=== PATIENT | male | born 1985 | race Caucasian/White ===

== ENCOUNTER 2020-04-13 10:34 | Observation (INO) | payer OTHER, SELFPAY ==
[2020-04-13] VITALS (11 sets, daily range): BP systolic 135–165; BP diastolic 71–94; PULSE 56–71; RESP 13–20; TEMP 36.2–36.6; O2SAT 97–100; BMI 34.9
--- NOTE | ~2020-04-13 | XR_ITS ---
EXAMINATION: XR chest 2V DATE: 04/13/2020 11:21 INDICATION: Left arm and neck tingling. TECHNIQUE: Frontal and lateral views of the chest were obtained. COMPARISON: Chest 2 views 03/28/2010 FINDINGS: The chest demonstrates clear lungs without pneumonia, pleural effusion, or pneumothorax. Th e heart size is normal. IMPRESSION: 1. No acute cardiopulmonary disease. Reviewed, dictated and finalized at location A. UDER OPERATOR MULTIPLE
--- NOTE | 2020-04-13 10:48 | ECG_ITS ---
Measurements Intervals [place] Rate: 61 P: 38 TN: 161 QRS: -13 QRSD: 103 T: 9 QT: 389 QTc: 392 Interpretive Statements SINUS RHYTHM VOLTAGE CRITERIA FOR LVH BORDERLINE R WAVE PROGRESSION, ANTERIOR LEADS BORDERLINE ECG Electronically Signed On 04-13-2020 11:19:02 BARBED WIRE MACHINE OPERATOR by Boy Hackett D.O.
[2020-04-13 11:20] LABS: Basophils Percent Auto 0.2 % (0.2-1.2); Eosinophils Absolute Auto 0.1 K/mm3 (0-0.3); Eosinophils Percent Auto 1.5 % (0-4.4); Hematocrit 44.2 % (42.0-52.0); Hemoglobin 15.7 g/dL (14.0-18.0); Immature Granulocyte Absolute 0.04 K/mm3 (0.00-0.031); Immature Granulocyte Percent A 0.9 % (0-0.5); Lymphocytes Absolute Auto 1.55 K/mm3 (0.9-3.2); Lymphocytes Percent Auto 33.6 % (18.3-44.2); Mean Corpuscular HGB Conc 35.5 g/dl (32-36); Mean Corpuscular Hemoglobin 28.4 pg (26-34); Mean Corpuscular Volume 80.1 fl (80-100); Mean Platelet Volume 9.5 fl (7.4-10.4); Monocytes Absolute Auto 0.4 K/mm3 (0.1-0.6); Monocytes Percent Auto 8.2 % (2.6-8.5); Neutrophils Absolute Auto 2.6 K/mm3 (1.3-6.7); Neutrophils Percent Auto 55.6 % (45.5-73.1); Platelet Count Result 182 k/mm3 (150-375); Red Blood Count 5.52 M/mm3 (4.6-6.20); Red Cell Distribution Width 12.3 % (11.5-14.5); White Blood Count 4.6 K/mm3 (4.5-10.0)
[2020-04-13 11:26] LABS: Anion Gap 7 mmol/L (8-16); Blood Urea Nitrogen 11 mg/dL (9-20); Calcium 8.9 mg/dL (8.4-10.2); Carbon Dioxide 29 mmol/L (22-30); Chloride 104 mmol/L (98-107); Estimated CRCL calculation 138 ml/min; Estimated Glomerular Filt Rate > 60; Glucose 93 mg/dL (75-110); Potassium 3.9 mmol/L (3.4-5.0); Sodium 140 mmol/L (137-145)
[2020-04-13 11:27] LABS: INR 0.9; Prothrombin Time 12.9 Seconds (11.1-14.7)
[2020-04-13 11:28] LABS: Partial Thromboplastin Time 28.4 SECONDS (22.3-36.8)
[2020-04-13 11:39] LABS: Troponin I < 0.012 ng/mL (0.000-0.034)
--- NOTE | 2020-04-13 11:53 | ED.GENADULT ---
HPI - General Adult General Chief complaint: Unspecified Stated complaint: palpitations, left arm numbness, lightheaded Time Seen by Provider: 04/13/20 11:18 Source: patient and family Mode of arrival: ambulatory Limitations: no limitations History of Present Illness HPI narrative: This is a 34 year old male with history of hypertension who presents for evaluation of palpitations and left arm tingling. His states he has had intermittent episodes of palpitations and diaphoresis with exertion for 6 months. Patient states starting on he developed diaphoresis, palpitation and neck pain 20 minutes after raking his yard. He states he felt better Monday to Monday, although he still did not feel right. Today he reports left arm tingling but denies focal weakness, chest pain. His reports his father has a significant cardiac history. Related Data Home Medications Medication Instructions Recorded Confirmed escitalopram oxalate 5 mg PO DAILY 04/13/20 04/13/20 losartan 50 mg PO DAILY 04/13/20 04/13/20 Allergies Allergy/AdvReac Type Severity Reaction Status Date / Time No Known Allergies Allergy Mild Verified 03/27/10 21:12 Review of Systems Review of Systems: All systems reviewed & are unremarkable except as noted in HPI and below Constitutional: Constitutional: Denies fatigue, Denies fever(s) and Denies headache(s) ENT: Denies headache(s) Cardiovascular: Cardiovascular: Reports chest pain with activity, Reports diaphoresis and Reports dyspnea Respiratory: Respiratory: Denies cough, Denies hemoptysis and Reports dyspnea PMFSH Past Medical History Medical History (Updated 04/13/20 @ 12:11 by Becca Carver MD) Hypertension Family History Family History Father Heart disease Social History Social History (Updated 04/13/20 @ 11:55 by Becca Carver MD) Smoking status: Never smoker Tobacco type: smokeless tobacco Smokeless tobacco user: chewing tobacco Second hand tobacco smoke exposure: Yes Alcohol intake: current Substance use: never Substance use type: does not use Living arrangements: with family Gender identity (if verbalized by the patient): Male Exam Narrative: Exam Narrative: GENERAL: Well-appearing, well-nourished, and in no acute distress. HEAD: Normocephalic, atraumatic EYES: PERRLA and EOMI, conjunctiva clear without discharge EARS: TM's clear bilaterally without erythema or dullness NOSE: Nares clear, no rhinorrhea or epistaxis THROAT:Mucous membranes moist, Oropharynx normal without erythema, exudate, peritonsillar swelling or fluctuance NECK: Supple, without lymphadenopathy or mass RESPIRATORY: No respiratory distress, Airway patent, Respirations non-labored, Clear to auscultation without rales, rhonchi or wheeze HEART: Regular rate and rhythm. No murmur heard. Normal peripheral pulses. ABDOMEN: Soft, nontender, nondistended, normal active bowel sounds. No masses. No rebound or guarding, No organomegaly. EXTREMITIES: No edema, normal strength with full range of motion. SKIN: Warm, dry, normal color without rash NEURO: Alert and oriented x3. CN 2-12 grossly intact. No focal deficits. PSYCH: Normal mood and affect. Course Reevaluation(s) Reevaluation #1: I Discussed with patient and his that he will be obs to materials planning analyst. He has no chest pain at this time. Date: 04/13/20 Time: 12:09 Consultations Consultation #1: I Discussed case with DR. Burton who agrees to admit to chest pain center . Date: 04/13/20 Time: 12:09 Vital Signs Vital signs: Vital Signs Temperature 97.1 F L 04/13/20 10:58 Pulse Rate 69 04/13/20 10:58 Respiratory Rate 18 04/13/20 10:58 Blood Pressure 165/94 H 04/13/20 10:58 Pulse Oximetry 100 04/13/20 10:58 Temperature 97.6 F 04/13/20 16:00 Pulse Rate 71 04/13/20 16:00 Respiratory Rate 15 04/13/20 16:00 Blood Pressure
[2020-04-13] MEDS: ASPIRIN 81 MG CHEWABLE TABLET 324 MG PO (12:24)
--- NOTE | 2020-04-13 14:00 | ECG_ITS ---
Measurements Intervals [place] Rate: 64 P: 7 FL: 148 QRS: 1 QRSD: 91 T: 0 QT: 382 QTc: 395 Interpretive Statements SINUS RHYTHM BORDERLINE R WAVE PROGRESSION, ANTERIOR LEADS BASELINE ARTIFACT- III, AVL, AVF BORDERLINE ECG Electronically Signed On 04-13-2020 14:13:16 CAUSTIC ROOM OPERATOR by Boy Hackett D.O.
--- NOTE | 2020-04-13 14:15 | ADMGEN ---
This patient, Robin Vega, was admitted to [facility] Patient/family oriented to hospital policies and general routines including ID bracelet, bed and alarms, visiting hours, pain management, procedures, bathroom and other care routines, personal items, smoking policy, room service/diet, and visiting hours. Information on how to activate the Rapid Response Team has been discussed. Patient/Family are encouraged to report perceived risks to care and to ask questions if they do not understand what they are told or what they should do.
[2020-04-13 14:55] LABS: Troponin I < 0.012 ng/mL (0.000-0.034)
--- NOTE | 2020-04-13 15:14 | PM.IMHP ---
H&P: HPI History of Present Illness Date/Time: 04/13/20 15:14 Chief Complaint: left neck pain Narrative: Patient is a 34-year-old white man with history of hypertension, active chewing tobacco use, obsessive-compulsive disorder, who is seen in cardiac consultation for a chief complaint of left neck discomfort. Patient reports 3 days prior to admission he was moving rocks when he became diaphoretic, with associated mental fogginess, tachypalpitations, and mild dyspnea. He denied associated chest pain or dizziness. Patient reports he awoke on the day of admission when he developed left neck tightness with associated left arm numbness, without palpitations. He reported some transient mental fogginess on the day of admission. He denied chest pain. He reports some exertional dyspnea the last 5 months. He denies recent injury or trauma. He does report prior surgery near his left wrist. He denies syncope, edema, orthopnea, or paroxysmal nocturnal dyspnea. Patient denies any history of myocardial infarction, congestive heart failure, cardiac arrhythmia, valvular heart disease, prior echo, or prior cardiac stress testing. He has not seen a screen tender previously. Patient reports his father had coronary artery disease requiring coronary artery bypass grafting in his 50s. This admission, EKG demonstrated normal sinus rhythm, poor R-wave progression, minimal voltage criteria for left ventricular hypertrophy. Telemetry has demonstrated sinus rhythm 62 beats per minute. He had a chest x-ray with no acute cardiopulmonary disease. Patient was seen and examined, chart reviewed, case discussed with nurse. Review of Systems Review of Systems: All systems reviewed & are unremarkable except as noted in HPI and below PMFSH Past Medical History Medical History Hypertension Family History Family History Father Heart disease Social History Social History Smoking status: Never smoker Tobacco type: smokeless tobacco Smokeless tobacco user: chewing tobacco Second hand tobacco smoke exposure: Yes Alcohol intake: current Substance use: never Substance use type: does not use Living arrangements: with family Gender identity (if verbalized by the patient): Male Meds Home Medications and Allergies Home Medications Medication Instructions Recorded Confirmed Type escitalopram oxalate 5 mg PO DAILY 04/13/20 04/13/20 History losartan 50 mg PO DAILY 04/13/20 04/13/20 History Allergies Allergy/AdvReac Type Severity Reaction Status Date / Time No Known Allergies Allergy Mild Verified 03/27/10 21:12 Vital Signs Vital Signs - 24 hr 04/13/20 10:58 04/13/20 11:46 04/13/20 12:01 Temperature 36.2 C L Pulse Rate 69 67 61 Respiratory Rate 18 13 15 Blood Pressure 165/94 H 135/86 138/83 Pulse Oximetry 100 100 04/13/20 12:16 04/13/20 12:35 04/13/20 13:20 Temperature 36.6 C Pulse Rate 64 68 67 Respiratory Rate 16 16 Blood Pressure 143/83 H 138/83 138/81 Pulse Oximetry 100 99 04/13/20 14:15 Temperature 36.5 C Pulse Rate 65 Respiratory Rate 14 Blood Pressure 145/81 H Pulse Oximetry 100 Exam Narrative: Exam Narrative: GENERAL: Well-appearing, well-nourished, and in no acute distress. HEAD: Normocephalic, atraumatic EYES: PERRLA and EOMI, conjunctiva clear without discharge EARS: TM's clear bilaterally without erythema or dullness NOSE: Nares clear, no rhinorrhea or epistaxis THROAT:Mucous membranes moist, Oropharynx normal without erythema, exudate, peritonsillar swelling or fluctuance NECK: Supple, without lymphadenopathy or mass RESPIRATORY: No respiratory distress, Airway patent, Respirations non-labored, Clear to auscultation without rales, rhonchi or wheeze HEART: Regular rate and rhythm. No murmur heard. Normal peripheral pulses. No c
--- NOTE | 2020-04-13 17:00 | ECG_ITS ---
Measurements Intervals [place] Rate: 65 P: 53 [place]: 181 QRS: -12 QRSD: 102 T: 35 QT: 372 QTc: 389 Interpretive Statements SINUS RHYTHM DELAYED PRECORDIAL R/S TRANSITION BASELINE ARTIFACT- I, II, III, AVR, AVL, V1 BORDERLINE ECG Electronically Signed On 04-13-2020 20:20:30 CERTIFIED FORKLIFT OPERATOR by Boy Hackett D.O.
[2020-04-13 17:42] LABS: Troponin I < 0.012 ng/mL (0.000-0.034)
[2020-04-13] MEDS: ESCITALOPRAM OXALATE 5 MG TABLET PO (19:44)
[2020-04-13] MEDS: LOSARTAN POTASSIUM 100 MG TABLET PO (19:44)
[2020-04-14] VITALS: BP 125/71; PULSE 56; PULSE 69; RESP 18; TEMP 36.6; O2SAT 97
[2020-04-14 01:59] VITALS: PULSE 60
[2020-04-14 04:00] VITALS: BP 153/90; PULSE 64; RESP 18; TEMP 36.4; O2SAT 98
[2020-04-14 04:54] LABS: Basophils Percent Auto 0.5 % (0.2-1.2); Eosinophils Absolute Auto 0.1 K/mm3 (0-0.3); Hematocrit 44.1 % (42.0-52.0); Immature Granulocyte Absolute 0.02 K/mm3 (0.00-0.031); Immature Granulocyte Percent A 0.4 % (0-0.5); Lymphocytes Absolute Auto 1.81 K/mm3 (0.9-3.2); Lymphocytes Percent Auto 32.8 % (18.3-44.2); Mean Corpuscular HGB Conc 36.3 g/dl (32-36); Mean Corpuscular Hemoglobin 29.2 pg (26-34); Mean Corpuscular Volume 80.5 fl (80-100); Mean Platelet Volume 9.5 fl (7.4-10.4); Monocytes Absolute Auto 0.5 K/mm3 (0.1-0.6); Monocytes Percent Auto 8.5 % (2.6-8.5); Neutrophils Absolute Auto 3.1 K/mm3 (1.3-6.7); Neutrophils Percent Auto 55.8 % (45.5-73.1); Platelet Count Result 187 k/mm3 (150-375); Red Blood Count 5.48 M/mm3 (4.6-6.20); Red Cell Distribution Width 12.3 % (11.5-14.5); White Blood Count 5.5 K/mm3 (4.5-10.0)
[2020-04-14 05:10] LABS: Anion Gap 6 mmol/L (8-16); Blood Urea Nitrogen 10 mg/dL (9-20); Calcium 8.7 mg/dL (8.4-10.2); Carbon Dioxide 30 mmol/L (22-30); Chloride 104 mmol/L (98-107); Estimated CRCL calculation 125 ml/min; Estimated Glomerular Filt Rate > 60; Glucose 94 mg/dL (75-110); Magnesium 1.8 mg/dL (1.6-2.3); Sodium 140 mmol/L (137-145)
[2020-04-14 06:00] VITALS: PULSE 63
[2020-04-14 07:30] VITALS: PULSE 65
--- NOTE | 2020-04-14 07:45 | PC.NURSE ---
DOWN VIA WC FOR STRESS ECHOCARDIOGRAM. DENIES CP OR SOB.
--- NOTE | 2020-04-14 08:00 | EST_ITS ---
Patient Info Name: Robin Vega Age: 34 years : 1985 Gender: Male Ht: 73 in Wt: 264 lbs BSA: 2.52 m2 Heart Rhythm: Sinus Rhythm Exam Date: 04/14/2020 7:47 AM Exam Location: [facility] Patient Status: Inpatient Admit Date: 04/13/2020 Staff Ordering Physician: Ugo Gu MD Gynecology Teacher: Risa Sage RDCS Attending Provider: Tigre Burton MD Exercise Technologist: Bridget Clemente RDCS Exercise Physician: Briana Linton MD Exam Type: CA stress echo Study Info Indications R07.9 - Chest pain, unspecified Treadmill exercise stress echocardiogram is performed. Summary 1. Patient exercise on Kevon protocol for 9 minutes and 45 seconds achieving 12 METS Resting heart rate was 62, increased to 168 at peak exercise which is 90% of maximum age predicted heart rate BP was 126/71 at rest, increased to 207/71 at peak exercise EKG showed normal sinus rhythm at rest. No ischemic changes noted at Peak exercise or at recovery 2D echo showed normal left ventricular systolic function at rest. At peak exercise, LV function became hyperdynamic with no regional wall motion changes. In summary: Stress test is negative for ischemia by EKG and echocardiography criteria Fair exercise tolerance for age No exercise induced arrhythmia Exaggerated hypertensive response to exercise noted. Protocol: Kevon Stress ECG Details Stage: REST Duration (min): 4 min : 4 sec Speed (mph): 0.0 Grade (%): 0 HR (bpm): 63 SBP (mmHg): 126 DBP (mmHg): 71 METS: --- Stage: REST Duration (min): 14 min : 33 sec Speed (mph): 0.0 Grade (%): 0 HR (bpm): 85 SBP (mmHg): 126 DBP (mmHg): 71 METS: --- Stage: STAGE 1 Duration (min): 1 min : 0 sec Speed (mph): 1.7 Grade (%): 10 HR (bpm): 101 SBP (mmHg): 126 DBP (mmHg): 71 METS: --- Stage: STAGE 1 Duration (min): 2 min : 0 sec Speed (mph): 1.7 Grade (%): 10 HR (bpm): 105 SBP (mmHg): 126 DBP (mmHg): 71 METS: --- Stage: STAGE 1 Duration (min): 3 min : 0 sec Speed (mph): 1.7 Grade (%): 10 HR (bpm): 107 SBP (mmHg): 168 DBP (mmHg): 71 METS: --- Stage: STAGE 2 Duration (min): 1 min : 0 sec Speed (mph): 2.5 Grade (%): 12 HR (bpm): 119 SBP (mmHg): 168 DBP (mmHg): 71 METS: --- Stage: STAGE 2 Duration (min): 2 min : 0 sec Speed (mph): 2.5 Grade (%): 12 HR (bpm): 130 SBP (mmHg): 182 DBP (mmHg): 71 METS: --- Stage: STAGE 2 Duration (min): 3 min : 0 sec Speed (mph): 2.5 Grade (%): 12 HR (bpm): 127 SBP (mmHg): 182 DBP (mmHg): 71 METS: --- Stage: STAGE 3 Duration (min): 1 min : 0 sec Speed (mph): 3.4 Grade (%): 14 HR (bpm): 142 SBP (mmHg): 207 DBP (mmHg): 71 METS: --- Stage: STAGE 3 Duration (min): 2 min : 0 sec Speed (mph): 3.4 Grade (%): 14 HR (bpm): 154 SBP (mmHg): 207 DBP (mmHg): 71 METS: --- Stage: STAGE 3 Duration (min): 3 min : 0 sec
--- NOTE | 2020-04-14 08:27 | PC.NURSE ---
RETURNS TO ATHLETICS TEACHER 6 VIA WC S/P STRESS ECHO.
[2020-04-14 08:30] VITALS: BP 127/83; PULSE 85; RESP 17; TEMP 36.3; O2SAT 96
--- NOTE | 2020-04-14 08:40 | PM.DS ---
DS: Admitting Diagnosis Admitting Diagnosis Admitting Diagnosis: Neck pain, abnormal EKG DS: Discharge Diagnosis Discharge Diagnosis (1) Neck pain on left side: Code(s): M54.2 - Cervicalgia Status: Acute Assessment and Plan: Patient is a 34-year-old white man with history of hypertension, active chewing tobacco use, obsessive-compulsive disorder, who is seen in cardiac consultation for a chief complaint of left neck discomfort. - Patient presents with left neck discomfort with associated left arm numbness, increased exertional dyspnea for several months, and abnormal EKG. - serial troponin I was negative for injury on 3 occasions, patient denies chest pain, and EKG without evidence of acute injury. - He underwent stress echocardiogram. Exercised for 10 minutes on Kevon protocol with no chest pain and no evidence of ischemia on EKG or echocardiogram (2) Abnormal EKG: Code(s): R94.31 - Abnormal electrocardiogram [ECG] [EKG] Status: Acute Assessment and Plan: - He had abnormal EKG with poor R-wave progression and minimal voltage criteria for left ventricular hypertrophy. (3) Hypertension: Code(s): I10 - Essential (primary) hypertension Status: Inactive Assessment and Plan: -Blood pressure was mildly elevated this admission. He also has exaggerated BP response to exercise during stress test -increased losartan 50 mg daily to 100 mg daily on discharge. . DS: Summary Hospital Course Hospital Course: 34 y/o male with h/o HTN and tobacco abuse (chews tobacco) who presented with left sided neck pain. EKG showed LVH and poor R wave progression. He ruled out for LA with trop negative X3. He underwent stress echo with average exercise tolerance and no evidence of ischemia. Exaggerated HTN response to exercise noted. Losartan dose was increased on discharge from 50 mg to 100 mg daily. Time Spent with Patient Time attestation: Total time spent providing and/or coordinating discharge services: Exam Narrative: Exam Narrative: GENERAL: Well-appearing, well-nourished, and in no acute distress. HEAD: Normocephalic, atraumatic EYES: PERRLA and EOMI, conjunctiva clear without discharge EARS: TM's clear bilaterally without erythema or dullness NOSE: Nares clear, no rhinorrhea or epistaxis THROAT:Mucous membranes moist, Oropharynx normal without erythema, exudate, peritonsillar swelling or fluctuance NECK: Supple, without lymphadenopathy or mass RESPIRATORY: No respiratory distress, Airway patent, Respirations non-labored, Clear to auscultation without rales, rhonchi or wheeze HEART: Regular rate and rhythm. No murmur heard. Normal peripheral pulses. No chest wall, left neck, or left arm tenderness. Well-healed postsurgical changes left wrist. ABDOMEN: Soft, nontender, nondistended, normal active bowel sounds. No masses. No rebound or guarding, No organomegaly. EXTREMITIES: No edema, normal strength with full range of motion. SKIN: Warm, dry, normal color without rash NEURO: Alert and oriented x3. CN 2-12 grossly intact. No focal deficits. PSYCH: Normal mood and affect. DS: Data Data Completed and Pending Labs on day of discharge: Labs from last 24 hours 04/14/20 04/14/20 04/14/20 04:48 04:48 04:48 WBC 5.5 RBC 5.48 Hgb 16.0 Hct 44.1 MCV 80.5 MCH 29.2 MCHC 36.3 H RDW 12.3 Plt Count 187 MPV 9.5 Immature Gran % (Auto) 0.4 Neut % (Auto) 55.8 Lymph % (Auto) 32.8 [place] % (Auto) 8.5 Eos % (Auto) 2.0 Baso % (Auto) 0.5 Lymph # (Auto) 1.81 [place] # (Auto) 0.5 Eos # (Auto) 0.1 Baso # (Auto) 0.0 Abs Immat Gran (auto) 0.02 Absolute Neuts (auto) 3.1 Absolute Nucleated RBC 0.0 Nucleated RBC % 0.0 PT INR APTT Sodium 140 Potassium 4.0 Chloride 104 Carbon Dioxide 30 Anion Gap 6 L BUN 10 Creatinine 1.00 Estim Creat Clear Calc 125 Estimated GFR > 60 Glucose 94 Calcium
--- NOTE | 2020-04-14 10:15 | PC.NURSE ---
REVIEWED DISCHARGE INSTRUCTIONS W/ PT. QUESTIONS ANSWERED. VOICED UNDERSTANDING OF ALL INSTRUCTIONS. COPY GIVEN. DISCHARGED HOME, OUT AMBULATORY TO BROTHER'S WAITING CAR WITH ALL PERSONAL BELONGINGS AND DISCHARGE PAPERWORK. DENIES PAIN OR SOB. NO DISTRESS NOTED.
== END 2020-04-14 10:15 | disposition home or self-care (01) ==
LOC: ANHED 12:11 → ANHCPC 04-14 08:44
PROVIDERS: Internal Medicine Cardiovascular Disease; Admitting Provider Specialist; Emergency Provider General Practice; PCP Internal Medicine; Visit Provider Internal Medicine
DX: M54.2 Cervicalgia (principal); R94.31 Abnormal electrocardiogram [ECG] [EKG]; R00.2 Palpitations; R06.09 Other forms of dyspnea; I10 Essential (primary) hypertension; F17.290 Nicotine dependence, other tobacco product, uncomplicated
CPT/HCPCS: 36415; 71046; 80048; 83735; 84443; 84484; 85025; 85610; 85730; 93005; 93351; 99285; A9270; G0378

== ENCOUNTER 2020-10-01 16:52 | Outpatient (CLI) | payer OTHER, SELFPAY ==
[2020-10-01 18:20] LABS: SARS-CoV-2 RNA PCR Negative (Negative)
== END 2020-10-01 16:53 | disposition home or self-care (01) ==
LOC: CHSLAB 16:55
PROVIDERS: PCP Internal Medicine; Visit Provider Internal Medicine
DX: Z20.822 Contact with and (suspected) exposure to COVID-19 (principal)
CPT/HCPCS: C9803; U0003; U0005

== ENCOUNTER 2021-11-20 09:32 | Outpatient (CLI) | payer OTHER, SELFPAY ==
[2021-11-20 10:27] LABS: Alanine Aminotransferase 60 U/L (16-63); Albumin Level 3.9 g/dL (3.4-5.0); Alkaline Phosphatase 55 U/L (46-116); Anion Gap 10 mmol/L (8-16); Aspartate Amino Transferase 27 U/L (15-37); Bilirubin,Total 0.4 mg/dL (0.00-1.00); Blood Urea Nitrogen 10 mg/dL (7-18); Calcium 8.6 mg/dL (8.5-10.1); Carbon Dioxide 26 mmol/L (21-32); Chloride 107 mmol/L (98-108); Cholesterol 176 mg/dL (0-200); Estimated Glomerular Filt Rate > 60; Glucose 96 mg/dL (70-99); HDL Direct 30 mg/dL (40-60); LDL Cholesterol Calculated 127 mg/dL (<130); Osmolality Calculated 295 mOsm/kg (285-295); Potassium 4.1 mmol/L (3.5-5.1); Sodium 143 mmol/L (136-145); Total Protein 6.5 g/dL (6.4-8.2); Triglycerides 94 mg/dL (0-150)
== END 2021-11-20 09:33 | disposition home or self-care (01) ==
LOC: CHSLAB 09:35
PROVIDERS: PCP Internal Medicine; Visit Provider Internal Medicine
DX: E78.5 Hyperlipidemia, unspecified (principal); K76.0 Fatty (change of) liver, not elsewhere classified
CPT/HCPCS: 36415; 80053; 80061

== ENCOUNTER 2023-05-02 15:46 | Outpatient (CLI) | payer OTHER, SELFPAY ==
--- NOTE | 2023-05-02 | ECG_ITS ---
Measurements Intervals [place] Rate: 75 P: 38 [place]: 160 QRS: 13 QRSD: 101 T: 12 QT: 356 QTc: 400 Interpretive Statements SINUS RHYTHM DELAYED PRECORDIAL R/S TRANSITION CONSIDER INFERIOR INFARCT, AGE INDETERMINATE BASELINE ARTIFACT- II, III ABNORMAL ECG COMPARED TO ECG 04/13/2020 17:07:00 NO SIGNIFICANT CHANGES Electronically Signed On 05-02-2023 16:26:37 CDT by Boy Hackett D.O.
== END 2023-05-02 15:47 | disposition home or self-care (01) ==
PROVIDERS: PCP Internal Medicine; Visit Provider Family Medicine
DX: R93.1 Abnormal findings on diagnostic imaging of heart and coronary circulation (principal); R94.31 Abnormal electrocardiogram [ECG] [EKG]
CPT/HCPCS: 93005

== ENCOUNTER 2023-12-02 22:24 | Emergency (ER) | payer OTHER, SELFPAY ==
[2023-12-02 22:24] VITALS: BP 136/85; PULSE 97; RESP 20; TEMP 36.1; O2SAT 96
--- NOTE | 2023-12-02 22:58 | PC.NURSE ---
report to megan howell
[2023-12-02] MEDS: LIDOCAINE HCL 2% PF INJ 5 ML VIAL 2 ML INFILTRATE (23:07)
--- NOTE | 2023-12-03 00:17 | ED.GENADULT ---
HPI - General Adult General Chief complaint: Wound/Laceration Stated complaint: laceration to lft 2nd digit History of Present Illness HPI narrative: Patient was attempting to open a retrieve something from a glass bottle when the bottle broke and cut his left index finger. He was able to control the bleeding with direct pressure and came to the emergency department for sutures. He is up-to-date on his Tdap. He denies any other injuries in the event. Related Data Home Medications Medication Instructions Recorded Confirmed escitalopram oxalate 5 mg tablet 5 mg PO DAILY 04/13/20 04/13/20 Allergies Allergy/AdvReac Type Severity Reaction Status Date / Time No Known Allergies Allergy Mild Verified 05/13/21 11:17 [facility] Past Medical History Medical History Hypertension Family History Family History Father Heart disease Social History Social History (System 05/13/21 @ 11:17 by Ernst Zhang) Smoking status: Never smoker Tobacco type: smokeless tobacco Smokeless tobacco user: chewing tobacco Second hand tobacco smoke exposure: Yes Alcohol intake: current Substance use: never Substance use type: does not use Living arrangements: with family Gender identity (if verbalized by the patient): Male Exam Narrative: There is an approximate 3 cm full-thickness laceration on the lateral aspect of the left index finger traveling past the MIP and turning on to the posterior of the hand. The risks and benefits of suturing were discussed with the patient and he agrees to proceed A brief time-out was performed to confirm the correct patient location A digital block was achieved using a total of 2 cc of 2% xylocaine without epinephrine injected at the base of the finger bilaterally the wound was copiously irrigated using sterile saline 7 simple interrupted sutures were placed using 4 0 Ethilon the finger was splinted in extension and dressed with a nonadherent dressing and triple antibiotic ointment patient tolerated the procedure well Course Vital Signs Vital signs: Vital Signs Temperature 36.1 C L 12/02/23 22:24 Pulse Rate 97 12/02/23 22:24 Respiratory Rate 20 12/02/23 22:24 Blood Pressure 136/85 12/02/23 22:24 Pulse Oximetry 96 12/02/23 22:24 Oxygen Delivery Room Air 12/02/23 22:24 Temperature 36.1 C L 12/02/23 22:24 Pulse Rate 97 12/02/23 22:24 Respiratory Rate 20 12/02/23 22:24 Blood Pressure 136/85 12/02/23 22:24 Pulse Oximetry 96 12/02/23 22:24 Oxygen Delivery Room Air 12/02/23 22:24 Medical Decision Making MDM Narrative Medical decision making narrative: Patient was placed in Room #:?7 Independent Historian: patient's External Source Review: none Differential diagnosis includes but not limited to:? laceration Medications were Reviewed: none Independently Interpreted by me: none Medications, treatment, ED course: digital block and suturing Social situation impacting patients care: lives independently in the community with his who is a medical lab assistant Shared decision making:? patient understands plan of care as described in his discharge instructions Accepting physician: none DISCHARGE DIAGNOSIS: finger laceration DISPOSITION: home with self-care CONDITION AT DISCHARGE:? stable Vital Signs Vital Signs: Vital Signs Temperature 36.1 C L 12/02/23 22:24 Pulse Rate 97 12/02/23 22:24 Respiratory Rate 20 12/02/23 22:24 Blood Pressure 136/85 12/02/23 22:24 Pulse Oximetry 96 12/02/23 22:24 Oxygen Delivery Room Air 12/02/23 22:24 Temperature 36.1 C L 12/02/23 22:24 Pulse Rate 97 12/02/23 22:24 Respiratory Rate 20 12/02/23 22:24 Blood Pressure 136/85 12/02/23 22:24 Pulse Oximetry 96 12/02/23 22:24 Oxygen Delivery Room Air 12/02/23 22:24 Discharge Plan Dis
[2023-12-03 00:30] VITALS: BP 138/76; PULSE 80; RESP 18; TEMP 36.6; O2SAT 97
== END 2023-12-03 00:30 | disposition home or self-care (01) ==
PROVIDERS: Emergency Provider Family Medicine; PCP Family Medicine
DX: S61.211A Laceration without foreign body of left index finger without damage to nail, initial encounter (principal); I10 Essential (primary) hypertension; W25.XXXA Contact with sharp glass, initial encounter
CPT/HCPCS: 12002; 99283; J2003

== ENCOUNTER 2024-12-31 08:09 | Outpatient (CLI) | payer OTHER, SELFPAY ==
[2024-12-31 08:29] LABS: Hematocrit 46.7 % (40.0-54.0); Hemoglobin 16.3 g/dL (14.0-18.0); Immature Granulocyte Percent A 0.2 % (0.0-0.0); Lymphocytes Absolute Auto 1.57 K/mm3 (1.10-4.50); Mean Corpuscular HGB Conc 34.9 g/dL (32-36); Mean Corpuscular Hemoglobin 28.7 pg (27.0-31.0); Mean Corpuscular Volume 82.2 fL (78.0-102.0); Nucleated Red Blood Cells Absolute Auto 0.00 K/mm3 (0.00-0.00); Nucleated Red Blood Cells Perc 0.0 % (0-0.0); Platelet Count Result 198 K/mm3 (150-420); Red Blood Count 5.68 M/mm3 (4.70-6.10); White Blood Count 4.3 K/mm3 (4.8-10.8)
[2024-12-31 08:54] LABS: Alanine Aminotransferase 66 U/L (6-50); Albumin Level 4.5 g/dL (3.5-5.1); Alkaline Phosphatase 56 U/L (38-126); Anion Gap 10 mmol/L (4-12); Aspartate Amino Transferase 45 U/L (17-59); Bilirubin,Total 0.7 mg/dL (0.2-1.3); Blood Urea Nitrogen 13 mg/dL (9-20); Calcium 9.1 mg/dL (8.4-10.2); Carbon Dioxide 27 mmol/L (22-30); Chloride 105 mmol/L (98-107); Cholesterol 203 mg/dL (0-200); Estimated Glomerular Filt Rate > 60; Glucose 105 mg/dL (65-110); HDL Direct 32 mg/dL; Osmolality Calculated 294 mOsm/kg (285-295); Potassium 4.3 mmol/L (3.4-5.0); Sodium 142 mmol/L (137-145); Total Protein 6.9 g/dL (6.3-8.2); Triglycerides 153 mg/dL (<150)
[2024-12-31 09:24] LABS: Prostate Specific Antigen 0.7 ng/mL (< OR = 4.0)
== END 2024-12-31 08:10 | disposition home or self-care (01) ==
PROVIDERS: PCP Family Medicine; Visit Provider Registered Nurse
DX: I10 Essential (primary) hypertension (principal); E29.1 Testicular hypofunction; Z13.220 Encounter for screening for lipoid disorders; Z12.5 Encounter for screening for malignant neoplasm of prostate
CPT/HCPCS: 36415; 80053; 80061; 84153; 85025; G0103

== ENCOUNTER 2025-01-03 13:56 | Outpatient (CLI) | payer OTHER, SELFPAY ==
--- NOTE | ~2025-01-03 | XR_ITS ---
EXAMINATION: Lumbosacral spine 3 views: DATE: 01/03/2025. INDICATION: Low back pain radiating to the left lower extremity. TECHNIQUE: AP, lateral and spot views of the lumbosacral spine were obtained. COMPARISON: None. FINDINGS: 5 lumbar segments are noted. Moderate degenerative disc disease and significant facet arthropathy at L4-5 level. Lesser changes at L5-S1 level. Soft tissues are unremarkable. IMPRESSION: 1. Degenerative disc disease and facet arthropathy predominantly at L4-5 level. If symptoms are persistent and not responding to conservative treatment, MRI is indicated. Reviewed, dictated and finalized at location [facility] IMPRESSION: 1. Degenerative disc disease and facet arthropathy predominantly at L4-5 level. If symptoms are persistent and not responding to conservative treatment, MRI i s indicated.
--- OUTSIDE RECORDS SUMMARY | 2025-01-03 14:01 | XMS_ITS | Encounter Summary ---
Author Organization [facility] Address [address] [place] [address] Phone Care Team Providers Care Heat Engineering Teacher Name Role Phone Yelena Miner MD Primary Care Provider Reason for Referral * Consultation (Routine) - Pending Review Specialty Diagnoses / Procedures Referred By Belem stevenson Referred To Contact Physical Therapy Diagnoses Acute pain of left knee Synovial cyst of left popliteal space Sprain of medial collateral ligament of left knee, initial encounter Cristin Medina PA [address] [facility] [address] [place] [address] Phone: tel: fax: [facility] [address] [place] [phone] Phone: tel: fax: Referral ID Status Reason Start Date Expiration Date Visits Requested Visits Authorized [id number] Pending Review Evaluate and Treat 12/22/2025 12 12 Question Answer PTRFR PT Evaluate and Treat Therapy options discussed with patient? Yes Location provided for therapy services is: Patient requested/Patient preferred Please select the performing region: External Order [[id number]] To loc/pos [facility] [[id number]] # of visits: 12 Encounter Details Date Type Department Care Team (Late st Contact Info) Description 11/22/2024 Results Follow-Up [facility] [address] [facility] [address] [place] [address] Cristin Medina PA [address] [place] [address] MRI Knee Left WO Contrast Social History Tobacco Use Types Packs/Day Years Used Date Smoking Tobacco: Never Assessed Sex and Gender Information Value Date Recorded Sex Assigned at Not on file Legal Sex Male 9:22 AM CDT Gender Identity Not on file Sexual Orientation Not on file documented as of this encounter Miscellaneous Notes * Telephone Encounter - Kaci Ladd RMA - 11/22/2024 10:07 AM CDT Per Cristin Medina, order for Pt sent to [facility] in [place], [place] per pt's request. documented in this encounter Plan of Treatment Scheduled Referrals Name Type Priority Associated Diagnoses Order Schedule Ambulatory referral order to Physical Therapy - Outpatient Referral Routine Acute pain of left knee Synovial cyst of left popliteal space Sprain of medial collateral ligament of left knee, initial encounter Expected: 01/22/2025 (Approximate), Expires: 11/22/2025 documented as of this encounter Visit Diagnoses Diagnosis Acute pain of left knee- Primary Synovial cyst of left popliteal space Sprain of medial collateral ligament of left knee, initial encounter documented in this encounter Care Teams Heat Engineering Teacher Relationship Specialty Start Date End Date Yelena Miner MD [address] [place] [address] PCP - General Family Medicine 10/19/24 documented as of this encounter
--- OUTSIDE RECORDS SUMMARY | 2025-01-03 14:01 | XMS_ITS | Clinical Summary ---
Author Organization [facility] Address [address] [place] [address] Phone Care Team Providers Care Plasma Processor Name Role Phone Nicolas Black MD Primary Care Provider [phone] Allergies No known active allergies Medications No known medications Family History Medical History Relation Name Comments No Known Problems Other Relation Name Status Comments Other Social History Tobacco Use Types Packs/Day Years Used Date Smoking Tobacco: Never Alcohol Use Standard Drinks/Week Comments No 0 (1 standard drink = 0.6 oz pur e alcohol) Sex and Gender Information Value Date Recorded Sex Assigned at Not on file Legal Sex Male 3:10 PM CNC SPECIALIST Gender Identity Not on file Sexual Orientation Not on file 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 Not on file Not on file Not o n file Last Filed Vital Signs Vital Sign Reading Time Taken Comments Blood Pressure 161/95 04/09/2016 3:15 PM CNC SPECIALIST Pulse 110 04/09/2016 3:14 PM CNC SPECIALIST Temperature 36.7 C (98.1 F) 04/09/2016 3:14 PM CNC SPECIALIST Respiratory Rate 18 04/09/2016 3:14 PM CNC SPECIALIST Oxygen Saturation 96% 04/09/2016 3:14 PM CNC SPECIALIST Inhaled Oxygen Concentration - - Weight 115.7 kg (255 lb) 04/09/2016 3:14 PM CNC SPECIALIST Height 185.4 cm (6' 1) 04/09/2016 3:14 PM CNC SPECIALIST Body Mass Index 33.64 04/09/2016 3:14 PM CNC SPECIALIST Plan of Treatment Health Maintenance Due Date Last Done Comments Hepatitis C Virus (HCV) Screening 1985 TdaP Immunization 1985 Hepatitis B Immunization (1 of 3 - 19+ 3-dose series) 2004 Human Papillomavirus (HPV) Immunization (1 - 3-dose SCDM series) 2012 Influenza Immunization (#1) 2024 SARS-COV-2 Immunization (2023- season) 2024 Respiratory Syncytial Virus (RSV) Immunization (Adult) (1 - 1-dose 75+ series) 2060 Meningococcal Immunization (ACWY) Aged Out No longer eligible based on patient's age to complete this topic Pneumococcal Immunization Combined Aged Out No longer eligible based on patient's age to complete this topic Rotavirus Immunization Aged Out No lo nger eligible based on patient's age to complete this topic Insurance GENERIC Care Teams Plasma Processor Relationship Specialty Start Date End Date Nicolas Black MD [address] [place] [address] PCP - General Internal Medicine 04/09/16
--- OUTSIDE RECORDS SUMMARY | 2025-01-03 14:01 | XMS_ITS | Clinical Summary ---
Author Organization [facility] Address [address] [place] [address] Care Team Providers Care Chip Mucker Name Role Phone Yelena Miner MD Primary Care Provider Allergies No known active allergies Medications losartan (COZAAR) 100 mg tablet Take 1 tablet (100 mg total) by mouth daily 5 Active metoprolol XL (TOPROL-XL) 50 mg extended release tablet 5 Active venlafaxine XR (EFFEXOR-XR) 37.5 mg 24 hr capsule Take by mouth daily 5 Active naproxen (NAPROSYN) 500 mg tabletIndicatio ns:Acute pain of left knee Take 1 tablet (500 mg total) by mouth 2 (two) times a day with meals 60 tablet 5 Active meloxicam (MOBIC) 15 mg tabletIndicatio ns:Acute pain of left knee Take 1 tablet (15 mg total) by mouth daily Take 1 daily with food 30 tablet 5 12/20/19 25 Discontinued Active Problems No known active problems Encounters Date Type Department Care Team Description 12/19/2024 4:15 PM DEVELOPMENT DISABILITY SPECIALIST Ancillary Procedure Radiology - [address] [place] [address] [address] [place] [address] Acute pain of left knee 12/19/2024 3:45 PM DEVELOPMENT DISABILITY SPECIALIST Office Visit [facility] Medicine Orthopaedic Surgery [address] [place] [address] 2nd [address] [place] [id number] Cristin Medina PA Acute pain of left knee (Primary Dx); Sprain of medial collateral ligament of left knee, subsequent encounter; Strain of left hamstring, initial encounter; Hamstring tendinitis 11/22/2024 Orders Only [facility] Orthopaedic Surgery [address] [facility] 2nd [address] [place] [address] Cristin Medina PA Acute pain of left knee (Primary Dx) 11/22/2024 Results Follow-Up [facility] Orthopaedic Surgery [address] [facility] 2nd Floor [address] [place] [address] Cristin Medina PA MRI Knee Left WO Contrast 11/21/2024 5:42 PM CDT - 11/21/2024 11:59 PM CD[place] [address] Acute pain of left knee; Synovial cyst of left popliteal space Discharge Disposition: Discharge to home or self care 11/13/2024 Results Follow-Up [facility] ([facility]) - [facility] Orth[facility] [address] [place] [phone] Cristin Medina PA XR Knee Left 3 Views 11/05/2024 1:05 PM CDT Ancillary Procedure [facility] Orthopaedic Surgery [address] [place] [address] [address] [place] [phone] Acute pain of left knee; Synovial cyst of left popliteal space 11/05/2024 12:45 PM CDT Ancillary Procedure [facility] Orthopaedic Surgery [address] [place] [address] [address] [place] [phone] 11/05/2024 12:20 PM CDT Procedure visit [facility] Orthopaedic Surgery [address] [place] [address] [address] [place] [phone] Atif Garduno MD Acute pain of left knee (Primary Dx); Synovial cyst of left popliteal space 10/19/2024 10:46 AM CDT - 10/19/2024 11:59 PM CDT Hospital Encounter [facility] Radiology at the [facility] [address] [place] [address] [place] [address] Left knee pain, unspecified chronicity Discharge Disposition: Discharge to home or self care 10/19/2024 10:45 AM CDT Office Visit [facility] Medicine and [facility] ([facility]) - [facility] Orth[facility] Injury Clinic [address] [place] [address] Cristin Medina PA Acute pain of left knee (Primary Dx); Synovial cyst of left popliteal space from Last 3 Months Social History Tobacco Use Types Packs/Day Years Used Date Smoking Tobacco: Never Passive Smoke Exposure: Never Smokeless Tobacco: Current Chew Tobacco Cessation:Ready to Q uit: No; Counseling Given: No Sex and Gender Information Value Date Recorded Sex Assigned at Not on file Legal Sex Male 9:22 AM CDT Gender Identity Not on file Sexual Orientation Not on file Last Filed Vital Signs Vital Sign Reading Time Taken Comments Blood Pressure - - Pulse - - Temperature - - Respiratory Rate - - Oxygen Saturation - - Inhaled Oxygen Concentration - - Weight 129.3 kg (285 lb) 12/19/2024 3:50 PM DEVELOPMENT DISABILITY SPECIALIST Height 185.4 cm (6' 1) 12/19/2024 3:50 PM DEVELOPMENT DISABILITY SPECIALIST Body Mass Index 37.6 12/19/2024 3:50 PM DEVELOPMENT DISABILITY SPECIALIST Plan of Treatment Health Maintenance Due Date Last Done Comments Depression Screening 1985 Hepatitis C Screening 1985 Varicella Vaccines (1 of 2 - 13+ 2-dose series) 1998 Hepatitis B Screening 09/26/2003 Regular Well Visit/Exam 18-64 09/26/2003 HPV Vaccines (1 - 3-dose SCDM series) 2012 Covid-19 Vaccine ( season) 2024 05/22/2020, 04/22/2020 Influenza Vaccine (#1) 2024 , 02/03/2023, 11/13/2022, Additional history exists DTaP/Tdap/Td Vaccine (5 - Td or Tdap) 10/24/2033 10/25/2023, 10/23/2013, 10/14/2013, Additional history exists Pneumococcal vaccine <65 Aged Out No longer eligible based on patient's age to complete this topic Procedures Procedure Name Priority Date/Time Associated Diagnosis Comments XR FEMUR LEFT 2 OR MORE VIEWS Schedule Routine, Read Routine (OP Routine) 12/19/2024 4:15 PM DEVELOPMENT DISABILITY SPECIALIST Acute pain of left knee MRI KNEE LEFT WO CONTRAST Schedule Routine, Read Routine (OP Routine) 11/21/2024 6:24 PM CDT Acute pain of left knee Synovial cyst of left popliteal space POCUS SOFT TISSUE OF THE UPPER OR LOWER EXTREMITY Schedule Routine, Read Routine (OP Routine) 11/05/2024 1:04 PM CDT Acute pain of left knee Synovial cyst of left popliteal space POCUS ASP/INJ MAJOR JOINT Schedule Routine, Read Routine (OP Routine) 11/05/2024 12:42 PM CDT Acute pain of left knee Synovial cyst of left popliteal space WI ARTHROCENTESIS ASPIR&/INJ MAJOR JT/BURSA W/US Routine 11/05/2024 12:20 PM CDT Acute pain of left knee XR KNEE LEFT 3 VIEWS Schedule Routine, Read Routine (OP Routine) 10/19/2024 10:53 AM CDT Left knee pain, unspecified chronicity from Last 3 Months Results * XR Femur Left 2 or More Views (12/19/2024 4:15 PM DEVELOPMENT DISABILITY SPECIALIST) Anatomical Region Laterality Modality Lower Extremities, Thigh, Femur Left Computed Radiography 12/19/2024 4:20 PM DEVELOPMENT DISABILITY SPECIALIST Impressions 12/19/2024 4:20 PM DEVELOPMENT DISABILITY SPECIALIST 1. No acute fracture of the left femur. Electronically signed by: Alfredo Gibbs MD Narrative 12/19/2024 4:20 PM DEVELOPMENT DISABILITY SPECIALIST EXAMINATION: XR FEMUR LEFT 2 OR MORE VIEWS HISTORY: Leg pain. FINDINGS: Comparison to knee radiographs 10/19/2024. No acute fracture. No dislocation. Left hip and knee joint spaces are preserved. No significant knee effusion. Procedure Note Alfredo Gibbs MD - 12/19/2024 EXAMINATION: XR FEMUR LEFT 2 OR MORE VIEWS HISTORY: Leg pain. FINDINGS: Comparison to knee radiographs 10/19/2024. No acute fracture. No dislocation. Left hip and knee joint spaces are preserved. No significant knee effusion. IMPRESSION: 1. No acute fracture of the left femur. Electronically signed by: Alfredo Gibbs MD Alenamilan Leoncio [facility] XR PROCEDURES Final R esult * MRI Knee Left WO Contrast (11/21/2024 6:24 PM CDT) Anatomical Region Laterality Modality Lower Extremities Left Magnetic Reson ance 11/21/2024 9:29 PM CDT Narrative 11/21/2024 9:34 PM CDT EXAM DESCRIPTION: MRI KNEE LEFT WO CONTRAST REASON FOR STUDY: eval posterior knee mass Left knee pain posteriorly and laterally x 2 months, nki or sx, c/o some popping TECHNIQUE: Multiplanar, multisequence MRI of the left knee was performed without contrast. COMPARISON: Radiographs 10/19/2024 FINDINGS: In the medial compartment, the meniscus is intact. Fissuring of the mesial femoral condyle. In the lateral compartment, the meniscus is intact. There is no focal chondrosis or subchondral edema. In the patellofemoral compartment, fissuring of the central trochlea and lateral patellar facet. The cruciate ligaments are intact. The lateral collateral ligament is intact. Mild edema is present at the medial collateral ligament with intact fibers. The extensor mechanism is normal. The popliteus tendon is intact. Moderate-sized knee effusion is present. There are no loose bodies. Mild anterior knee subcutaneous edema. IMPRESSION: 1. Intact left knee menisci, cruciate and lateral collateral ligaments. 2. Mild edema at the medial collateral ligament with intact fibers. This may represent medial collateral ligament versus a low-grade sprain and can be correlated with physical exam and patient history. 3. Mild medial and patellofemoral bicompartmental left knee chondrosis. 4. Moderate-sized left knee effusion. THIS IS AN ELECTRONICALLY VERIFIED FINAL REPORT 11/21/2024 9:34 PM - Electronically signed by Atif Liang M.D. T: Report ID: [id number] Reading Location: [id number] Procedure Note Atif Liang MD - 11/21/2024 EXAM DESCRIPTION: MRI KNEE LEFT WO CONTRAST REASON FOR STUDY: eval posterior knee mass Left knee pain posteriorly and laterally x 2 months, nki or sx, c/o some popping TECHNIQUE: Multiplanar, multisequence MRI of the left knee was performed without contrast. COMPARISON: Radiographs 10/19/2024 FINDINGS: In the medial compartment, the meniscus is intact. Fissuring ofthe mesial femoral condyle. In the lateral compartment, the meniscus is intact. There is no focal chondrosis or subchondral edema. In the patellofemoral compartment, fissuring of the central trochlea and lateral patellar facet. The cruciate ligaments are intact. The lateral collateral ligament isintact. Mild edema is present at the medial collateral ligament with intactfibers. The extensor mechanism is normal. The popliteus tendon is intact. Moderate-sized knee effusion is present. There are no loose bodies. Mild anterior knee subcutaneous edema. IMPRESSION: 1. Intact left knee menisci, cruciate and lateral collateralligaments. 2. Mild edema at the medial collateral ligament with intact fibers. Thismay represent medial collateral ligament versus a low-grade sprain and can be correlated with physical exam and patient history. 3. Mild medial and patellofemoral bicompartmental left kneechondrosis. 4. Moderate-sized left knee effusion. THIS IS AN ELECTRONICALLY VERIFIED FINAL REPORT 11/21/2024 9:34 PM - Electronically signed by Atif Liang M.D. T: Report ID: [id number] Reading Location: [id number] Cristin [facility] MRI PROCEDURES Final Result * POCUS Soft Tissue of the Upper or Lower Extremity (11/05/2024 1:04 PM CDT) Narrative RAD_PACS_POCUS_[facility] - 11/05/2024 1:04 PM CDT This procedure was performed and interpreted by the provider. Please refer to the provider's procedure/OR operative note for results. Atif Garduno MD POCUS ORDERABLES Final Result [facility]PACS_P[facility]US[facility] * POCUS ASP/INJ MAJOR JOINT (11/05/2024 12:42 PM CDT) Narrative [facility] - 11/05/2024 12:42 PM CDT This procedure was performed and interpreted by the provider. Please refer to the provider's procedure/OR operative note for results. Atif Garduno MD POCUS ORDERABLES Final Result Performing Organization Address [facility]/ZIP Co de Phone Number RAD_PACS_POCUS[facility] * [place] ARTHROCENTESIS ASPIR&/INJ MAJOR JT/BURSA W/US (11/05/2024 12:20 PM CDT) Narrative Atif Garduno MD - 11/05/2024 12:20 PM CDT Atif Garduno MD 11/26/2024 1:08 PM Large Joint Injection w/ Ultrasound Guidance: L knee Performed by: Atif Garduno MD Authorized by: Cristin Medina PA Large Joint Injection/Aspiration: Consent Given by: Patient Site marked: the procedure site was marked Verbal consent obtained: Yes Supporting Documentation: Indications: Pain Procedure Details: Location: Knee Site: L knee Prep: patient was prepped and draped in usual sterile fashion Needle Size: 25 G Approach: Superior lateral Ultrasound guided: Yes Ultrasound guidance used for: Pre-procedure marking and real-time guidance Sterile ultrasond techniques: Sterile gel and sterile probe covers were used Medications: 2 mL BUPivacaine HCl 0.25 % (2.5 mg/mL); 2 mL lidocaine 10 mg/mL (1 %); 40 mg triamcinolone 40 mg/mL Patient tolerance: Patient tolerated the procedure well with no immediate complications us Cristin [facility]IDE ORDERAB LES Final Result * XR Knee Left 3 Views (10/19/2024 10:53 AM CDT) Anatomical Region Laterality Modality Lower Extremities, Knee Left Computed Radiography 10/19/2024 11:2 9 AM CDT Impressions 10/19/2024 11:29 AM CDT Mild medial compartment left knee osteoarthritis. Electronically signed by: Allan Ramirez MD Narrative 10/19/2024 11:29 AM CDT EXAMINATION: XR KNEE LEFT 3 VIEWS HISTORY: Left knee pain FINDINGS: No comparison. Alignment is normal. There is no fracture. Mild medial compartment left knee osteoarthritis. Trace left knee joint effusion. Mild anterior soft tissue swelling. Procedure Note Alaln Ramirez MD - 10/19/2024 EXAMINATION: XR KNEE LEFT 3 VIEWS HISTORY: Left knee pain FINDINGS: No comparison. Alignment is normal. There is no fracture. Mild medial compartment left knee osteoarthritis. Trace left knee joint effusion. Mild anterior soft tissue swelling. IMPRESSION: Mild medial compartment left knee osteoarthritis. Electronically signed by: Allan Ramirez MD Cristin [facility] XR PROCEDURES Final R esult from Last 3 Months Insurance CIG[employer] CIGNA Care Teams Chip Mucker Relationship Specialty Start Date End Date Yelena Miner MD [address] [place] [address] PCP - General Family Medicine 10/19/24
== END 2025-01-03 13:57 | disposition home or self-care (01) ==
LOC: CHSIMG 13:58
PROVIDERS: PCP Family Medicine; Visit Provider Family Medicine
DX: M54.16 Radiculopathy, lumbar region (principal); M51.369 Other intervertebral disc degeneration, lumbar region without mention of lumbar back pain or lower extremity pain
CPT/HCPCS: 72100

== ENCOUNTER 2025-01-07 16:29 | Outpatient (RCR) | payer OTHER, SELFPAY ==
--- NOTE | 2025-01-07 17:24 | OPREHPOC ---
Outpatient Therapy Plan of Care This is a Multidisciplinary Plan of Care that may contain components documented by all disciplines (PT, OT, and ST.) PT Problem 1 PT Problem #1 Knowledge Deficit PT Goal 1 Goal / Goal Update independent and compliant with HEP Target Visit 5 PT Problem 2 PT Problem #2 Pain PT Goal 1 Goal / Goal Update decrease pain at worst to 3/10 or less in the lower back and L LE no radicular symptoms past the L buttock. Target Visit 10 PT Problem 3 PT Problem #3 Impaired Range of Motion PT Goal 1 Goal / Goal Update 100% lumbar active ROM in all directions without pain Target Visit 10 PT Problem 4 PT Problem #4 Impaired Strength PT Goal 1 Goal / Goal Update 4+/5 or better overall bilateral hip strength 5/5 bilateral knee strength 5/5 bilateral ankle DF Target Visit 10 PT Problem 5 PT Problem #5 Impaired Functional Mobility PT Goal 1 Goal / Goal Update oswestry to display 10% or less functional deficits patient to safely squat and lift 50lbs from floor to waist patient to tolerate 2 hours sitting at one time without increased pain/symptoms Target Visit 10
--- NOTE | 2025-01-07 17:24 | PTOPEVAL1 ---
Assessment and note entered by JT File, PT Evaluation Information Assessment Status Evaluation ICD-10 Condition Codes (PT) Pain in low back M54.50,Radiculopathy, lumbar region M54.16 Onset 08/13/2024 Subjective Information patient reports he is having pain in the lower back that runs down the back of the L LE. he reports the pain does not go past his knee. he reports he has had xray of the lower back and L knee. he reports he is getting an MRI of the lower back this monday. he reports he has increased pain and symptoms with standing, walking. he reports he does not have much symptoms sitting. he reports afternoon are worse. 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 Reported Pain Level Pain Score 7: Self Report Assessment PT Clinical Summary mr. loivia is a pleasant 39 yo man who presents to skilled PT services for evaluation and treatment of L lower back pain and L Lumbar radiculopathy into the L LE. he displays deficits in lower back pain, core strength, LE strength, flexibility, and has radicular symptoms into the L LE. his signs and symptoms are consistent with L Lumbar radiculopathy/sciatica. continued skilled PT is indicated to improve his objective/ functional deficits and progress towards a return to his prior level functional activity performance /quality of life. Plan of Care Interventions Electrical Stimulation,Hot Pack/Cold Pack,Manual Therapy,Neuro Re-education,Patient/Caregiver Education,Therapeutic Activities,Therapeutic Exercise PT Services Indicated Yes Treatment Frequency and 2x weekly for 10 visits Duration These treatments will address the objective and functional deficits as defined above. The patient will be advanced safely and appropriately in order for the patient to progress towards his/her prior level of function. Additional exercises will be introduced and as well as a comprehensive home exercise program upon discharge, if needed, ?to ensure carryover of functional gains achieved in the clinic. This treatment plan has been reviewed and agreement upon by the patient.
--- NOTE | 2025-01-20 10:41 | PCPTNOTE ---
Cancelled session due to a sore throat.
--- NOTE | 2025-01-22 09:36 | PTOPEVAL1 ---
Assessment and note entered by JT File, PT Evaluation Information Assessment Status Evaluation ICD-10 Condition Codes (PT) Pain in low back M54.50,Radiculopathy, lumbar region M54.16 Onset 08/13/2024 Subjective Information patient reports he is having pain in the lower back that runs down the back of the L LE. he reports the pain does not go past his knee. he reports he has had xray of the lower back and L knee. he reports he is getting an MRI of the lower back this monday. he reports he has increased pain and symptoms with standing, walking. he reports he does not have much symptoms sitting. he reports afternoon are worse. 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 Assessment PT Clinical Summary mr. olivia is a pleasant 39 yo man who presents to skilled PT services for evaluation and treatment of L lower back pain and L Lumbar radiculopathy into the L LE. he displays deficits in lower back pain, core strength, LE strength, flexibility, and has radicular symptoms into the L LE. his signs and symptoms are consistent with L Lumbar radiculopathy/sciatica. continued skilled PT is indicated to improve his objective/ functional deficits and progress towards a return to his prior level functional activity performance /quality of life. Plan of Care Interventions Electrical Stimulation,Hot Pack/Cold Pack,Manual Therapy,Neuro Re-education,Patient/Caregiver Education,Therapeutic Activities,Therapeutic Exercise PT Services Indicated Yes Treatment Frequency and 2x weekly for 10 visits Duration These treatments will address the objective and functional deficits as defined above. The patient will be advanced safely and appropriately in order for the patient to progress towards his/her prior level of function. Additional exercises will be introduced and as well as a comprehensive home exercise program upon discharge, if needed, ?to ensure carryover of functional gains achieved in the clinic. This treatment plan has been reviewed and agreement upon by the patient.
--- NOTE | 2025-01-22 10:17 | PCPTNOTE ---
Patient called & cancelled scheduled appointment this date due to MD wants him to hold PT for now. -Ne Rascon, PT
== END 2025-01-16 20:00 | disposition home or self-care (01) ==
LOC: CHSPT 16:29
PROVIDERS: Visit Provider Family Medicine
DX: M54.16 Radiculopathy, lumbar region (principal); M54.50 Low back pain, unspecified
CPT/HCPCS: 97014; 97110; 97112; 97140; 97150; 97161; G0283

== ENCOUNTER 2025-01-13 07:46 | Outpatient (CLI) | payer OTHER, SELFPAY ==
--- OUTSIDE RECORDS SUMMARY | 2025-01-13 07:50 | XMS_ITS | Clinical Summary ---
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 Not on file Not o n file Last Filed Vital Signs Vital Sign Reading Time Taken Comments Blood Pressure 161/95 04/09/2016 3:15 PM CATEGORY DIRECTOR Pulse 110 04/09/2016 3:14 PM CATEGORY DIRECTOR Temperature 36.7 C (98.1 F) 04/09/2016 3:14 PM CATEGORY DIRECTOR Respiratory Rate 18 04/09/2016 3:14 PM CATEGORY DIRECTOR Oxygen Saturation 96% 04/09/2016 3:14 PM CATEGORY DIRECTOR Inhaled Oxygen Concentration - - Weight 115.7 kg (255 lb) 04/09/2016 3:14 PM CATEGORY DIRECTOR Height 185.4 cm (6' 1) 04/09/2016 3:14 PM CATEGORY DIRECTOR Body Mass Index 33.64 04/09/2016 3:14 PM CATEGORY DIRECTOR Plan of Treatment Health Maintenance Due Date [...] complete this topic Insurance GENERIC Care Teams Senior Linux Administrator Relationship Specialty Start Date End Date Nicolas Black MD [address] [place] [address] PCP - General Internal Medicine 04/09/16
--- OUTSIDE RECORDS SUMMARY | 2025-01-13 07:50 | XMS_ITS | Encounter Summary ---
Author Organization [facility] Address [address] [place] [address] Phone Care Team Providers Care Spot Man Name Role Phone Yelena Miner MD Primary Care Provider Raulito Cash NP Primary Care Provi mike Reason for Referral * Consultation (Routine) - Pending Review Specialty Diagnoses / Procedures Referred By Belem stevenson Referred To Contact Physical Therapy Diagnoses Acute pain of left knee Synovial cyst of left popliteal space Sprain of medial collateral ligament of left knee, initial encounter Cristin Medina PA [address] [facility] [address] [place] [address] Phone: tel: fax: [facility] [address] [place] [phone] Phone: tel: fax: Referral ID Status Reason Start Date Expiration Date Visits Requested Visits Authorized [id number] Pending Review Evaluate and Treat 12/22/2025 12 12 Question Answer PTRFR PT Evaluate and Treat Therapy options discussed with patient? Yes Location provided for therapy services is: Patient requested/Patient preferred Please select the performing region: External Order [[id number]] To loc/pos [facility] [[id number]] # of visits: 12 Encounter Details Date Type Department Care Team (Late st Contact Info) Description 11/22/2024 Results Follow-Up [facility] Medicine Orthopaedic Surgery [address] [facility] 2nd [address] [place] [address] Cristin Medina PA [address] [facility] [address] [place] [address] MRI Knee Left WO Contrast Social History [...] Cristin Medina, order for Pt sent to [facility] in [place], [place] per pt's request. documented in this [...] encounter documented in this encounter Care Teams Spot Man Relationship Specialty Start Date End Date Yelena Miner MD [address] [place] [id number] PCP - General Family Medicine 10/19/24 01/05/25 Raulito Cash NP [address] [place] [id number] PCP - General Nurse Practitioner 01/06/25 documented as of this encounter
--- OUTSIDE RECORDS SUMMARY | 2025-01-13 07:50 | XMS_ITS | Clinical Summary ---
Author Organization [facility] Address [address] [place] [address] Care Team Providers Care Automatic [employer]pper Name Role Phone Raulito Cash NP Primary Care Provi mike Allergies No known active allergies Medications losartan [...] Department Care Team Description 12/19/2024 4:15 PM TECHNOLOGY INTERN Ancillary Procedure Radiology - [address] [place] [address] [address] [place] [address] Acute pain of left knee 12/19/2024 3:45 PM TECHNOLOGY INTERN Office Visit [facility] Medicine Orthopaedic Surgery [address] [place] [address] 2nd [address] [place] [address] Cristin Medina PA Acute pain of left knee (Primary Dx); Sprain of medial collateral ligament of left knee, subsequent encounter; Strain of left hamstring, initial encounter; Hamstring tendinitis 11/22/2024 Orders Only [facility] Orthopaedic Surgery [address] [facility] 2[address] [place] [address] Cristin Medina PA Acute pain of left knee (Primary Dx) 11/22/2024 Results Follow-Up [facility] Orthopaedic Surgery [address] [facility] 2[address] [place] [address] Cristin Medina PA MRI Knee Left WO Contrast 11/21/2024 5:42 PM CDT - 11/21/2024 11:59 PM CDT Hospital Encounter [address] [address] Acute pain of left knee; Synovial cyst of left popliteal space Discharge Disposition: Discharge to home or self care 11/13/2024 Results Follow-Up [facility] Orthopedic [place] ([facility]) - [facility] [id number] [place] [phone] Cristin Medina PA XR Knee Left 3 Views 11/05/2024 1:05 PM CDT Ancillary Procedure [facility] Orthopaedic Surgery [id number] [place] [address] [address] [place] [phone] Acute pain of left knee; Synovial cyst of left popliteal space 11/05/2024 12:45 PM CDT Ancillary Procedure [facility] Orthopaedic Surgery [address] [place] [address] [address] [place] [phone] 11/05/2024 12:20 PM CDT Procedure visit [facility] Orthopaedic Surgery [address] [place] [address] [address] [place] [phone] Atif Garduno MD Acute pain of left knee (Primary Dx); Synovial cyst of left popliteal space 10/19/2024 10:46 AM CDT - 10/19/2024 11:59 PM CDT Hospital Encounter [facility] [address] [place] [phone] Left knee pain, unspecified chronicity Discharge Disposition: Discharge to home or self care 10/19/2024 10:45 AM CDT Office Visit [facility] Medicine and [facility] ([facility]) - [facility] [address] [place] [phone] Cristin Medina PA Acute pain of left [...] 129.3 kg (285 lb) 12/19/2024 3:50 PM TECHNOLOGY INTERN Height 185.4 cm (6' 1) 12/19/2024 3:50 PM TECHNOLOGY INTERN Body Mass Index 37.6 12/19/2024 3:50 PM TECHNOLOGY INTERN Plan of Treatment Health Maintenance Due Date [...] Read Routine (OP Routine) 12/19/2024 4:15 PM TECHNOLOGY INTERN Acute pain of left knee MRI KNEE [...] knee Synovial cyst of left popliteal space CA ARTHROCENTESIS ASPIR&/INJ MAJOR JT/BURSA W/US Routine 11/05/2024 12:20 PM CDT Acute pain of left knee XR KNEE LEFT 3 VIEWS Schedule Routine, Read Routine (OP Routine) 10/19/2024 10:53 AM CDT Left knee pain, unspecified chronicity from Last 3 Months Results * XR Femur Left 2 or More Views (12/19/2024 4:15 PM TECHNOLOGY INTERN) Anatomical Region Laterality Modality Lower Extremities, Thigh, Femur Left Computed Radiography 12/19/2024 4:20 PM TECHNOLOGY INTERN Impressions 12/19/2024 4:20 PM TECHNOLOGY INTERN 1. No acute fracture of the left femur. Electronically signed by: Alfredo Gibbs MD Narrative 12/19/2024 4:20 PM TECHNOLOGY INTERN EXAMINATION: XR FEMUR LEFT 2 OR MORE [...] femur. Electronically signed by: Alfredo Gibbs MD us Cristin [facility] XR PROCEDURES Final R esult [...] - Electronically signed by Atif Liang M.D. AHSAN T: Report ID: [id number] Reading Location: [id number] Procedure Note Atif Liang MD - 11/21/2024 [...] 9:34 PM - Electronically signed by Atif FOREMAN T: Report ID: [id number] Reading Location: [id number] Cristin [facility] [place]ED[place] Final Result * POCUS Soft Tissue of the Upper or Lower Extremity (11/05/2024 1:04 PM CDT) Narrative RAD_PACS_POCUS_[facility] - 11/05/2024 1:04 PM CDT This procedure [...] POCUS ORDERABLES Final Result Performing Organization Address [facility] Co de Phone Number [email or web address] * CA ARTHROCENTESIS ASPIR&/INJ MAJOR JT/BURSA W/US (11/05/2024 12:20 [...] Mild anterior soft tissue swelling. Procedure Note Allan Ramirez MD - 10/19/2024 EXAMINATION: XR KNEE [...] R esult from Last 3 Months Insurance [employer] Care Teams Automatic [employer] Stripper Relationship Specialty Start Date End Date Raulito Cash NP [address] [place] [id number] PCP - General Nurse Practitioner 01/06/25
[2025-01-17 10:08] LABS: Free Testosterone (Direct) 11.9 pg/mL (8.7-25.1)
== END 2025-01-13 07:47 | disposition home or self-care (01) ==
LOC: CHSLAB 07:48
PROVIDERS: PCP Family Medicine; Visit Provider Family Medicine
DX: I10 Essential (primary) hypertension (principal); E29.1 Testicular hypofunction; Z13.220 Encounter for screening for lipoid disorders; Z12.5 Encounter for screening for malignant neoplasm of prostate
CPT/HCPCS: 36415; 84402; 84403